=== PATIENT | male | born 1940 ===

== ENCOUNTER 2022-02-26 20:46 | Emergency (ER) | payer BC, MEDICARE | END 2022-02-26 21:45 | disposition home or self-care (01) | LOC: LB.ED 20:46 | DX: S70.11XA Contusion of right thigh, initial encounter (principal); S80.811A Abrasion, right lower leg, initial encounter; Z79.899 Other long term (current) drug therapy; W19.XXXA Unspecified fall, initial encounter | CPT/HCPCS: 73552-RT; 99281; 99283 ==

== ENCOUNTER 2023-05-15 12:31 | Day surgery (SDC) | payer MEDICARE ==
[2023-05-15] MEDS: Sodium Chloride 0.9% 1,000 ML IV SCH (12:47)
[2023-05-15] MEDS ORDERED: Propofol 200 MG/20 ML SDV ONE (13:55)
[2023-05-15] MEDS ORDERED: Benzocaine/Butamben/Tetracaine Top Spray 56 GM Canister ONE (13:55)
[2023-05-15 14:11] VITALS: BP 144/83; PULSE 67
== END 2023-05-15 14:55 | disposition home or self-care (01) ==
LOC: LB.SDS 12:31
PROVIDERS: ATTEND Surgery
DX: K31.89 Other diseases of stomach and duodenum (principal); K29.70 Gastritis, unspecified, without bleeding; K20.90 Esophagitis, unspecified without bleeding; I10 Essential (primary) hypertension; Z79.899 Other long term (current) drug therapy
CPT/HCPCS: J2704; J7030